=== PATIENT | male | born 1980 | race Caucasian/White ===

== ENCOUNTER 2018-06-13 09:02 | Emergency (ER) | payer SELFPAY ==
[2018-06-13] MEDS ORDERED: CEFTRIAXONE INJ 1000 MG VIAL IV ONE (09:39)
[2018-06-13] MEDS ORDERED: KETOROLAC TROMETHAMINE INJ/PF 30 MG/1 ML SDV IV ONE (09:39)
[2018-06-13] MEDS ORDERED: DEXAMETHASONE SOD PHOS INJ 10 MG/1 ML VIAL IV ONE (09:41)
--- NOTE | 2018-06-13 09:51 | ER Document Report ---
ED General - General Chief Complaint: Toothache Stated Complaint: FACIAL SWELLING Time Seen by Provider: 06/13/18 09:31 Mode of Arrival: Ambulatory Information source: Patient Notes: 88-year-old male presented to ED for complaint of dental pain with swelling to the face. He states he went to urgent care yesterday and they gave him 875 of amoxicillin. He states he had things to do so he refused to get the antibiotic shot while he was there. He states that the swelling has increased tremendously since starting the antibiotics. He states he is taking the antibiotics as they were prescribed. He states he did take his amoxicillin this morning. He is alert oriented respirations regular and unlabored speaking in full sentences walking with an even steady gait. TRAVEL OUTSIDE OF THE [place] IN LAST 30 DAYS: No - HPI Onset: Other - He states the dental pain is been for a couple years the facial swelling has been a couple days Onset/Duration: Gradual, Worse Quality of pain: Pressure, Sharp, Throbbing Severity: Severe Pain Level: 5 Associated symptoms: Other - Dental pain facial pain is facial swelling left side Exacerbated by: Denies Relieved by: Denies Similar symptoms previously: Yes Recently seen / treated by doctor: Yes - Related Data Allergies/Adverse Reactions: No Known Allergies Allergy (Unverified 06/13/18 09:05) Past Medical History - General Information source: Patient - Social History Smoking Status: Current Every Day Smoker Cigarette use (# per day): Yes - 1/2 ppd Chew tobacco use (# tins/day): No Smoking Education Provided: Yes - 4 min Frequency of alcohol use: Occasional Drug Abuse: None 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 Lives with: Spouse/Significant other Family History: Reviewed & Not Pertinent Patient has suicidal ideation: No Patient has homicidal ideation: No - Past Medical History Cardiac Medical History: Reports: None Pulmonary Medical History: Reports: None EENT Medical History: Reports: 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 Neurological Medical History: Reports: None Endocrine Medical History: Reports: None Renal/ Medical History: Reports: None Malignancy Medical History: Reports None GI Medical History: Reports: None Musculoskeletal Medical History: Reports Hx Musculoskeletal Trauma - Fractured right clavicle Skin Medical History: Reports None Psychiatric Medical History: Reports: None Traumatic Medical History: Reports: Hx Fractures - Right clavicle Infectious Medical History: Reports: None Surgical Hx: Negative Past Surgical History: Reports: None Review of Systems - Review of Systems EENT: Mouth pain, Mouth swelling, Dental problem, Other - Facial swelling Cardiovascular: No symptoms reported Respiratory: No symptoms reported Gastrointestinal: No symptoms reported Genitourinary: No symptoms reported Male Genitourinary: No symptoms reported Musculoskeletal: No symptoms reported Skin: No symptoms reported Hematologic/Lymphatic: No symptoms reported Neurological/Psychological: No symptoms reported -: Yes All other systems reviewed and negative Physical Exam - Vital signs Vitals: Temp Pulse Resp BP Pulse Ox 98.6 F 61 16 151/93 H 97 06/13/18 09:09 06/13/18 09:09 06/13/18 09:09 06/13/18 09:09 06/13/18 09:09 Interpretation: Normal - General General appearance: Appears well, Alert - HEENT Head: Normocephalic, Atraumatic Eyes: Normal Pupils: PERRL Ears: Normal External canal: Normal Tympanic membrane: Normal Sinus: Swelling - Left side of his face is swollen tooth #10 very decayed and has erythematous gum surrounding the tooth Nasal: Normal Mouth/Lips: Caries Mucous membranes: Normal Teeth diagram: 1 - Very decayed tooth with redness and swelling surrounding the tooth Pharynx: Normal Neck: Normal - Respiratory Respiratory status: No respiratory distress Chest status: Nontender Breath sounds: Normal Chest palpation: Normal - Cardiovascular Rhythm: Regular Heart sounds: Normal auscultation Murmur: No - Abdominal Inspection: Normal Distension: No distension Bowel sounds: Normal Tenderness: Nontender Organomegaly: No organomegaly - Back Back: Normal, Nontender - Extremities General upper extremity: Normal inspection, Nontender, Normal color, Normal ROM, Normal temperature General lower extremity: Normal inspection, Nontender, Normal color, Normal ROM, Normal temperature, Normal weight bearing. No: Lory's sign - Neurological Neuro grossly intact: Yes Cognition: Normal Orientation: AAOx4 Therese Coma Scale Eye Opening: Spontaneous Flinton Coma Scale Verbal: Oriented Therese Coma Scale Motor: Obeys Commands Therese Coma Scale Total: 15 Speech: Normal Motor strength normal: LUE, RUE, LLE, RLE Sensory: Normal - Psychological Associated symptoms: Normal affect, Normal mood - Skin Skin Temperature: Warm Skin Moisture: Dry Skin Color: Normal Course - Re-evaluation Re-evalutation: 06/13/18 17:14 Examination was discussed with Dr. Linn. He recommended CT of the face as well as Rocephin IV Toradol and Decadron. These were all given to the patient. CT was positive for soft tissue swelling but no abscess. Patient was treated with Rocephin 2 g IV as well as Toradol and Decadron. Patient was discharged home with instructions to follow-up with a dentist as soon as possible. Patient verbalized understanding and agreement with treatment plan. Patient to continue taking his amoxicillin until they are completed. - Vital Signs Vital signs: Temp Pulse Resp BP Pulse Ox 99.1 F 62 16 117/64 100 06/13/18 13:07 06/13/18 13:07 06/13/18 13:07 06/13/18 13:07 06/13/18 13:07 - Diagnostic Test Radiology reviewed: Image reviewed, Reports reviewed Discharge - Discharge Clinical Impression: Dental pain with facial swelling Condition: Stable Disposition: HOME, SELF-CARE Additional Instructions: TOOTHACHE: Your pain is due to dental decay. The tooth must be repaired in order for you to feel better. You will, therefore, be referred to a dentist. We do not have dentists on the staff at [facility]. Severe swelling or drainage around a tooth usually means a dental abscess. This also requires evaluation and treatment by the dentist, but antibiotics may be prescribed while awaiting dental treatment. You should be rechecked immediately if you develop major swelling of the face, increasing pain, a lump in the jaw or gums, headache, difficulty swallowing, or fever. Rocephin You have been given an injection of an antibiotic called Rocephin (ceftriaxone). Sometimes the injection must be combined with antibiotic pills. For some infections, such as an uncomplicated ear infection, Rocephin provides all the antibiotic that's needed. The antibiotic will be in your body for about two days. For serious infections, we usually repeat doses of Rocephin daily. Side effects are very unusual following a shot. Women may develop vaginal yeast infections, and babies can get yeast (thrush) in the mouth following the use of antibiotics. Contact your physician if you have symptoms with this medication. Allergy to this antibiotic can result in hives, wheezing, faintness, or itching. If symptoms of allergy occur, call the doctor at once. Continue taking your amoxicillin as ordered. This Rocephin injection will help you to get started on your infection but you still need to take the amoxicillin as ordered. You also need to follow-up with a dentist as soon as possible to have the tooth treated or removed. STEROID MEDICATION: You have been given an injection of medicine of the cortisone/steroid class. This medication is used to control inflammation or allergy. It is often continued as a pill for a short period of time, until the acute process subside s. There are usually no side effects from short-term use of cortisone-like medications. Some persons feel an increased sense of well-being and are not sleepy at bedtime. Long-term use of cortisone medications is best avoided, unless required for a severe condition. If your condition does not remit, or relapses after the course of corticosteroid medication, you should consult your physician. Toradol Injection You have been given an injection of ketorolac tromethamine (Toradol). This is an excellent, safe drug for pain control. It also has potent antiinfla mmatory action. You should have significant pain relief within about one hour. Toradol is not addicting and is non-sedating. It does not interfere with driving or work. Call or return if you develop itching, hives, shortness of breath, or rash. FOLLOW-UP CARE: You have been referred for follow-up care to the dentists listed below. Call the dentists office for an appointment as you were instructed or within the next two days. If you experience worsening or a significant change in your symptoms, notify the physician immediately or return to the Emergency Department at any time for re-evaluation. [facility] [address] [place], [place] Tuesday mornings, by appointment [facility] [address] [place] [address] [facility] [address] [facility] [address] [facility] [address] [facility] [email or web address] [facility] [address] [place] [address] Tuesday- 8:00am to 5:00 pm Will see patients from other [facility] Charges based on income and family size and accepts Medicare, Medicaid, and Insurances Will pull molars [facility] [address] Hours of Operation 8:00 am - 4:30 pm weekdays The following dental offices accept Medicaid: [facility] Dr. Lilly Dr. Rodriguez Dr. Norton Dr. Arreola Hugo Erickson [place], and [facility] Dr. Stephen ([place]) Dr. Walton ([place]) [facility] Drs. Tobias and Jose Alberto ([place]) Dr. Jacome ([place]) [facility] Dr. Bruner ([place]) Drs. Craig and ([place]) Medicaid Care Line Forms: Elevated Blood Pressure, Smoking Cessation Education, Return to Work
--- NOTE | 2018-06-13 11:52 | RADIOLOGY REPORT (SQ) ---
EXAM DESCRIPTION: CT FACIAL AREA WITH COMPLETED DATE/TIME: 06/13/2018 10:58 am REASON FOR STUDY: facial swelling possible abscess dental infection COMPARISON: None. TECHNIQUE: Post contrast images through the facial bones and orbits windowed for bone and soft tissu e. Additional coronal and sagittal reconstructed images reviewed. All images stored on PACS. All CT scanners at this facility use dose modulation, iterative reconstruction, and/or weight based d osing when appropriate to reduce radiation dose to as low as reasonably achievable (ALARA). [facility]: Dose Right [facility]: CareDose [facility]: Dose Right [facility]: Teradose 4D [facility]: HELM Boots CONTRAST TYPE AND DOSE: contrast/concentration: Isovue 350.00 mg/ml; Total Contrast Delivered: 75.0 ml; Total Saline Delivered: 55.0 ml RENAL FUNCTION: None required. The patient is less than 50 years old. RADIATION DOSE: CT Rad equipment meets quality standard of care and radiation dose reduction techniq ues were employed. CTDIvol: 30.4 mGy. DLP: 659 mGy-cm. . LIMITATIONS: None. FINDINGS: FACIAL BONES: No fracture or bone lesion. ORBITS: Intact. No fracture. Symmetric intact globes and retroorbital soft tissues. PARANASAL SINUSES: Left-sided maxillary sinus mucosal thickening. No nasal polyps. Maxillary sinus ou tlets are patent. SOFT TISSUES: Extensive soft tissue swelling over the left face. No focal fluid collection. INFERIOR BRAIN: Limited view. No acute findings. OTHER: Multiple bilateral carious upper molars with periapical lucencies. IMPRESSION: 1. Extensive soft tissue swelling over the left face. No focal fluid collection. 2. Multiple bilateral carious upper molars with periapical lucencies. 3. Left-sided maxillary sinus mucosal thickening, which may be reactive to adjacent soft tissue or d ental infection or may be related to primary sinusitis. TECHNICAL DOCUMENTATION: JOB ID: [id number] Quality ID # [id number]: Final reports with documentation of one or more dose reduction techniques (e.g., Au tomated exposure control, adjustment of the mA and/or kV according to patient size, use of iterative reconstruction technique) 2010 [employer]- All Rights Reserved Reading location - IP/workstation name: [email or web address]
[2018-06-13 13:08] VITALS: BP 117/64
== END 2018-06-13 13:09 | disposition home or self-care (01) ==
LOC: ER 09:02
DX: K02.9 Dental caries, unspecified (principal); R22.0 Localized swelling, mass and lump, head; K08.89 Other specified disorders of teeth and supporting structures; F17.210 Nicotine dependence, cigarettes, uncomplicated; Z71.6 Tobacco abuse counseling
CPT/HCPCS: 99406; 99283; 96375; 96365; 70487; J1885; J0696; J1100